=== PATIENT | female | born 2000 | race African-American/Black ===

== ENCOUNTER 2022-04-16 19:20 | Emergency (ER) | payer MEDICAID ==
[~2022-04-16] VITALS: Ht 157.5 cm; Wt 48.0 kg
[2022-04-16] MEDS ORDERED: ONDANSETRON HCL 4MG/2ML INJ IV ONE (20:15)
[2022-04-16] MEDS ORDERED: DEXT 5%/LACTATED RINGERS 1,000 ML IV ONE (20:15)
[2022-04-16] MEDS ORDERED: PHENAZOPYRIDINE HCL 100MG TABLET PO ONE (20:15)
[2022-04-16 20:38] LABS: CHLORIDE 104 mEq/L (98-107)
[2022-04-16 20:39] LABS: HEMATOCRIT. 38.5 % (36.0-48.0); HEMOGLOBIN. 12.9 g/dL (12.0-16.0); MEAN CORPUSCULAR HEMOGLOBIN 29.6 pg (28.0-32.0); MEAN CORPUSCULAR VOLUME 88.5 fL (81.0-99.0); MEAN PLATELET VOLUME 9.3 fl (7.4-10.4); PLATELET 202 x1000/uL (130-400); RED BLOOD CELL COUNT 4.35 mill/uL (4.2-5.4); RED CELL DISTRIBUTION WIDTH 13.8 % (11.6-14.6)
[2022-04-16 20:56] LABS: PLATELET ESTIMATE NORMAL
[2022-04-16 21:45] LABS: CLARITY URINE CLOUDY (CLEAR); COLOR URINE YELLOW (YELLOW); KETONES URINE 4+ (NEGATIVE); LEUKOCYTE ESTERASE URINE TRACE (NEGATIVE); NITRITE URINE NEGATIVE (NEGATIVE); OCCULT BLOOD URINE NEGATIVE (NEGATIVE); PH URINE 6.5 (4.5-8.0); PROTEIN URINE 1+ (NEGATIVE); SPECIFIC GRAVITY URINE 1.033 (1.005-1.030)
[2022-04-16] MEDS ORDERED: POTASSIUM CHLORIDE 20MEQ TABLET SR PO NR (22:12)
[2022-04-16] MEDS ORDERED: CEPH500C2 MT (22:52)
[2022-04-16] MEDS ORDERED: ONDA4TAB50 MT (22:52)
[2022-04-16] MEDS ORDERED: CEFTRIAXONE 2 G in DEXTROSE 5% WATER 50 ML IV NR (23:00)
[2022-04-17 00:25] VITALS: BP 109/56
== END 2022-04-17 00:25 | disposition home or self-care (01) ==
LOC: ER 19:20
DX: O21.8 Other vomiting complicating pregnancy (principal); O26.892 Other specified pregnancy related conditions, second trimester; R10.30 Lower abdominal pain, unspecified; Z3A.17 17 weeks gestation of pregnancy
CPT/HCPCS: 36415; 76805; 80053; 81003; 85025; 96365; 96375; 99285; J0696; J2405; J7060; J7121; Z7610